=== PATIENT | female | born 1980 | race Hispanic/Latino ===

== ENCOUNTER 2016-06-11 21:48 | Emergency (ER) | payer OTHER ==
[~2016-06-11] VITALS: Ht 149.9 cm; Wt 80.7 kg
[~2016-06-11 21:48] MED LIST: DOCUSATE SODIU100 MG PO; IBUPROFEN800 MG PO; PERCOCET 325 MG1 TA2 PO; PERCOCET 5-3251 EACH PO; TYLENOL EXTRA500 M2 PO
--- NOTE | 2016-06-11 22:13 | ED SKIN/ALLERGY COMPLAINT ---
History of Present Illness General Chief Complaint: General Adult Stated Complaint: PT THINKS SHE IS HAVING A REACTION Source: patient Exam Limitations: no limitations Vital Signs & Intake/Output Vital Signs & Intake/Output Vital Signs Date Time Temp Pulse Resp B/P Pulse O2 O2 Flow FiO2 Ox Delivery Rate 06/12 0013 98.0 94 18 121/80 100 Room Air 06/11 2244 100 Room Air 06/11 2154 98.2 105 20 125/81 100 Room Air ED Intake and Output 06/12 0000 06/11 1200 Intake Total Output Total Balance Patient 178 lb Weight Allergies Coded Allergies: NSAIDS (Non-Steroidal Anti-Inflamma (ANAPHYLAXIS 12/18/15) aspirin (ANAPHYLAXIS 12/18/15) ibuprofen (ANAPHYLAXIS 12/18/15) Triage Note: RECEIVED 36 YO FEMALE C/O SHE JUST GOT HOME AND SHE FEELS LIKE SHE IS HAVING A REACTION TO SOMETHING. PT C/O FEELING ITCHY ALL OVER, SCRATCHY THROAT, FEELS VERY CONGESTED WITH DIFFICULTY SWALLOWING Triage Nurses Notes Reviewed? yes Onset: Abrupt Duration: constant Timing: single episode today Severity: moderate Severity Numbers: 5 Location: generalized Possible Factors: foods No Modifying Factors: none : No Patient currently breastfeeds: No HPI: Patient is a 36-year-old female with a past medical history of asthma who presents to emergency room stating that this evening 50 minutes prior to arrival she ate her dinner which encompassed rice beans and pork chop and which approximate 20 minutes immediately after she started to complain of generalized body itching itchy scratchy throat eyelid swelling and mild shortness of breath. Patient took her inhaler with no relief of symptoms and took an unknown allergy medication. Patient denies any tongue swelling or lip swelling or difficulty swallowing. (ANIYAH MOSELEY) Reconcile Medications Diphenhydramine HCl (Benadryl) 25 MG CAPSULE 1 CAP PO TID ALLERGIC REACTION Famotidine (Pepcid) 20 MG TABLET 1 TAB PO DAILY ALLERGIC REACTION Methylprednisolone. (Medrol) 4 MG TAB.DS.PK 1 DP PO AD INFLAMMATION 6 on day 1 then reduce by one tablet daily until gone (MARILIA BALDERAS,JENNY) Past History Travel History Traveled to [place] past 21 day No Medical History Any Pertinent Medical History? see below for history Neurological: NONE EENT: NONE Cardiovascular: NONE Respiratory: asthma Gastrointestinal: NONE Hepatic: NONE Renal: NONE Musculoskeletal: CARPAL TUNNEL Psychiatric: NONE Endocrine: NONE Blood Disorders: NONE Cancer(s): NONE MANAGER LEASING/Reproductive: ectopic Surgical History Surgical History: tubal ligation Psychosocial History Who do you live with Patient/Self What is your primary language [place] Citizen Tobacco Use: Never used Family History Hx Contributory? No (ANIYAH MOSELEY) Review of Systems Review of Systems Constitutional: Reports: no symptoms. EENTM: Reports: see HPI. Respiratory: Reports: see HPI. Cardiovascular: Reports: no symptoms. GI: Reports: no symptoms. Genitourinary: Reports: no symptoms. Musculoskeletal: Reports: no symptoms. Skin: Reports: see HPI, rash. Neurological/Psychological: Reports: no symptoms. Hematologic/Endocrine: Reports: no symptoms. Immunologic/Allergic: Reports: no symptoms. All Other Systems: Reviewed and Negative (ANIYAH MOSELEY) Physical Exam Physical Exam General Appearance: no apparent distress, alert Comments: Well-developed well-nourished person in no acute distress HEENT: Normal EENT exam, extraocular motion intact, no nystagmus. Pupils equally round and reactive to light and accommodation. Nose is atraumatic. External auditory canal and Tympanic membranes clear. Pharynx normal. No swelling or edema. No tongue swelling no lip swelling No pharyngeal swelling Neck: Supple, no lymphadenopathy, normal range of motion without pain or tenderness No stridor Back: Nontender, no CVA tenderness. Cardiovascular: Regular rate and rhythms no murmurs rubs or gallops, normal JVP Respiratory: Chest nontender. No respiratory distress.breath sounds clear to auscultation bilaterally Abdomen: Soft, nontender nondistended, no appreciable organomegaly. Normal bowel sounds. No ascites Extremity: No edema, no calf tenderness to palpation, normal and equal pulses. Neuro: Alert oriented x3, motor sensory normal, Skin: scattered 1 cm erythema and raised urticaria noted on extremities and torso Psych: Mood and affect is normal, memory and judgment is normal. (ANIYAH MOSELEY) Progress Differential Diagnosis: abscess/cellulitis, allergic reaction, anaphylaxis, angioedema, asthma, contact dermatitis, drug reaction, erythema multiforme, lyme disease, meningitis/sepsis, piyriasis rosea, RMSF, scarlet fever, shingles, urticaria Plan of Care: Current Medications Sig/Racheal Start time Last Medication Dose Stop Time Status Admin Diphenhydramine HCl 50 MG ONCE ONE 06/11 2230 AC (Benadryl) 06/11 2230 Famotidine 20 MG ONCE ONE 06/11 2229 AC (Pepcid) 06/11 2230 Methylprednisolone 125 MG ONCE ONE 06/11 2229 AC (Solu Medrol) 06/11 2230 Patient currently shows no signs of anaphylaxis or angioedema oxygen saturation was 99% no stridor noted no respiratory distress. 06/11/2016 11:18:44 PM-reevaluation the patient she states that she feels significantly improved and there are no signs of urticaria no signs of stridor no signs of pharyngeal swelling no signs of anaphylaxis or urticaria or angioedema. On discharge patient had 99% oxygen saturation I strongly advised patient to avoid the food which most likely cause her symptoms and she will comply. (ANIYAH MOSELEY) Departure Departure Disposition: HOME OR SELF CARE Condition: Stable Clinical Impression Primary Impression: Allergic reaction to food Secondary Impressions: Hives Referrals: PATIENT HAS NO PRIMARY CARE DR (PCP/Family) Additional Instructions: As discussed begin the Medrol dosepak prescription tomorrow YOU HAVE received prednisone in the emergency room, begin the prescription of Pepcid and Benadryl as directed for your symptoms. Please avoid the food THAT most likely cause your symptoms. If symptoms worsen or if he develop any new concerning symptom return to emergency room immediately. Follow-up with primary care doctor tomorrow if no better Prescription is waiting at [facility] pharmacy Departure Forms: Customer Survey General Discharge Information Prescriptions: Current Visit Scripts Methylprednisolone. (Medrol) 1 DP PO AD #1 DP 6 on day 1 then reduce by one tablet daily until gone Famotidine (Pepcid) 1 TAB PO DAILY #8 TAB Diphenhydramine HCl (Benadryl) 1 CAP PO TID #9 CAP (ANIYAH MOSELEY) PA/FINISHED GOODS INSPECTOR Co-Sign Statement Statement: ED Attending supervision documentation- [] I saw and evaluated the patient. I have also reviewed all the pertinent lab results and diagnostic results. I agree with the findings and the plan of care as documented in the PA's/FINISHED GOODS INSPECTOR's documentation. [X] I have reviewed the ED Record and agree with the PA's/FINISHED GOODS INSPECTOR's documentation. [] Additions or exceptions (if any) to the PAs/FINISHED GOODS INSPECTOR's note and plan are summarized below: [] (MARILIA BALDERAS,JENNY)
[2016-06-11] MEDS ORDERED: MEDROL4 M2 PO (22:31)
[2016-06-11] MEDS ORDERED: BENADRYL25 MG PO (22:31)
[2016-06-11] MEDS ORDERED: PEPCID20 M1 PO (22:31)
[2016-06-12 00:13] VITALS: BP 121/80
== END 2016-06-12 00:15 ==
LOC: ERH 21:48 → CANBEDREQ 22:42 → ERH 06-12 00:15
DX: T78.1XXA Other adverse food reactions, not elsewhere classified, initial encounter (principal); L50.9 Urticaria, unspecified
CPT/HCPCS: 96374; 96375; J1200; J2930

== ENCOUNTER → 2017-11-19 | Day surgery (SDC) | payer OTHER ==
[~2017-11-19] VITALS: Ht 149.9 cm; Wt 81.6 kg
[~2017-11-19] MED LIST changes: +BENADRYL25 MG PO; +MEDROL4 M2 PO; +PEPCID20 M1 PO
[2017-11-19 10:15] LABS: ABSOLUTE BASOPHIL COUNT 0.1 /CUMM (0.0-0.2); ABSOLUTE EOSINOPHIL COUNT 0.2 /CUMM (0.0-0.7); ABSOLUTE GRANULOCYTE CT 4.8 /CUMM (1.4-6.5); ABSOLUTE LYMPH COUNT 2.2 /CUMM (1.2-3.4); ABSOLUTE MONOCYTE COUNT 0.4 /CUMM (0.10-0.60); BASOPHIL % 0.8 % (0.0-2.0); EOSINOPHIL % 2.8 % (0-5); GRANULOCYTE % 62.1 % (42.2-75.2); HEMATOCRIT 41.6 % (37-47); MEAN CORPUSCULAR HGB 26.5 PG (27.0-31.0); MEAN CORPUSCULAR HGB CONC 32.5 G/DL (33.0-37.0); MEAN CORPUSCULAR VOLUME 81.6 FL (81.0-99.0); PLATELET COUNT 398 /CUMM (130-400); RBC DISTRIBUTION WIDTH 15.2 % (11.5-14.5); WHITE BLOOD CELL COUNT 7.8 /CUMM (4.8-10.8)
[2017-11-19 10:25] LABS: PT 12.4 SEC (9.4-12.5); PTT 29 SEC (25-37)
--- NOTE | 2017-11-19 13:12 | Operative Report ---
Operative/Inv Procedure Report Surgery Date: 11/19/17 Name of Procedure: D&C cryoablation of the uterus under ultrasound guidance Pre-Operative Diagnosis: Menorrhagia Post-Operative Diagnosis: Same Estimated Blood Loss: 50ml to 100ml Surgeon/Barge Master: Jovany BALDERAS,Lisset Sellers Anesthesia: moderate sedation Operative/Procedure Note Note: She was taken the operating room placed supine position after adequate anesthesia patient placed in dorsolithotomy position the vagina from dorsal fashion bladder was catheterized a's ramirez speculum was placed into the vagina CO2 tenaculum was placed on the Intralipid cervix cervix twilight dilated 29 Hegar to allow for the insertion of the sharp curet sharp curettage and cervical lining performed sharp curettage of the endometrial lining performed 2 specimens were sent to pathology this point the bladder was filled approximately 250 mL of normal saline patient tolerated that well under ultrasound guidance the probe was inserted the uterus approximately 8 minutes on a well-developed probe was heated and removed on since removed from the vagina patient was returned spine position awakened from anesthesia and transferred recovery room awake alert counts correct
--- NOTE | 2017-11-20 07:52 | ULTRASOUND REPORT ---
EXAMINATION: Intraoperative ultrasound CLINICAL INFORMATION: 37-year-old female with metromenorrhagia. COMPARISON: None. TECHNIQUE: Ultrasound required for intraoperative use by Dr. Manzo for dilatation and curettage and cryoablation. A total of 9 images were saved to PACS. A radiologist was not present during today's procedure. FINDINGS\E\IMPRESSION: Intraoperative ultrasound provided for use by Dr. Manzo. Please see operative note for detailed findings.
== END ==
LOC: STS 02:09 → XRY 11:30
PROVIDERS: Specialist
DX: N92.0 Excessive and frequent menstruation with regular cycle (principal)
CPT/HCPCS: 36415; 76998; 81001; 81025; 82670; J0131; J2250

== ENCOUNTER → 2018-01-11 | Day surgery (SDC) | payer OTHER ==
[~2018-01-11] VITALS: Ht 149.9 cm; Wt 79.4 kg
--- NOTE | 2018-01-11 10:57 | Operative Report ---
Operative/Inv Procedure Report Surgery Date: 01/11/18 Name of Procedure: Right breast biopsy with wire localization Pre-Operative Diagnosis: Right breast mass, complex sclerosing lesion Post-Operative Diagnosis: Same Estimated Blood Loss: scant Surgeon/Product Control And Logistics Analyst: Beth Frank MD Anesthesia: local monitored anesthesi Specimens: Right breast biopsy Operative/Procedure Note Note: Patient has an abnormal mammogram and needle biopsy was performed. Complex sclerosing lesion was identified on pathology, and mammography appearance remains suspicious with a wide area of architectural distortion. Excisional biopsy is recommended. This is brought to the operating room and given and anesthesia. 2 g of Ancef was given and the right breast was prepped and draped in a sterile fashion using ChloraPrep. Preoperative wire localization was performed and those films were reviewed. Local anesthesia of lidocaine and Marcaine mix was given and a periareolar incision was made. The wire was brought into the incision and a firm area surrounding the wire localization site was dissected from surrounding tissue using sharp dissection. Hemostasis is achieved using electrocautery. Specimen was removed and marked for orientation and margin map. Intraoperative x-ray confirmed the presence of the clip in the specimen. Hemostasis was adequate and deep tissue was approximated using interrupted Vicryl sutures. Skin was closed using a running Biosyn subcutaneous/stitch. Insertion of central dressings were applied and patient was transferred to the recovery room in satisfactory condition having tolerated the procedure well.
--- NOTE | 2018-01-12 08:43 | MAMMOGRAPHY REPORT ---
PROCEDURE: US GUIDANCE FOR BREAST PREOPERATIVE NEEDLE LOCALIZATION, RIGHT MM POST NEEDLE LOCALIZATION SINGLE CC VIEW, RIGHT BREAST AND SPECIMEN RADIOGRAPHY CLINICAL INFORMATION: 37-year-old female with family history of breast cancer (maternal great aunt, and maternal great grandmother) and personal history of left-sided benign excisional biopsy at age 21, found to have architectural distortion within the right breast at 11-12 o'clock, 3 to 4 cm from the nipple on screening mammogram done in 2018. Subsequent ultrasound-guided biopsy showed fragments of sclerosing lesion with ductal hyperplasia and flat epithelial atypia and fibrocystic changes. Preoperative needle localization for surgical excision is requested. COMPARISON: Prior studies done on 11/18/2017 and 11/24/2017. TECHNIQUE AND FINDINGS: The details of the procedure, as well as the risks, benefits, and alternatives to the procedure were explained to the patient in detail and all of her questions were answered, after which, written informed consent was obtained. Prior to the procedure, sonography revealed heterogeneous irregular mass at 11-12 o'clock, 3 cm from the nipple containing a tissue marker from prior biopsy done on 11/24/2017. A time-out was performed, the lesion intended for needle localization was targeted and the skin of the right breast was then prepped and draped in the usual sterile fashion. Using sonographic guidance, sterile technique and buffered 2% lidocaine without epinephrine for local anesthesia, a 5 cm Kopans needle was placed within the target at 11-12 o'clock, 3 cm from the nipple. The patient tolerated the procedure well.. The single view mammogram further confirmed accurate placement of the wire within the intended mass. No adjustment was considered necessary. Previously placed tissue marker was also identified adjacent to the wire. The worksheet was appropriately labeled and was sent to the OR with the patient. Subsequently, following excision of the mass, the specimen radiography was performed which revealed target within the specimen with intact wire and the previously placed tissue marker within the mass. IMPRESSION: 1. Successful sonographic guided wire localization of the right breast biopsy proved sclerosing lesion at 11-12 o'clock, 3 cm from the nipple. 2. Mammographic confirmation of accurate needle localization along with appropriate marking for presurgical roadmap with worksheet. 3. Final specimen radiograph confirming complete, adequate excision of the mass and removal of the previously placed tissue marker and intact wire. Results were called to Dr. Frank in the operating room at the time of imaging. The histology report is pending.
== END ==
LOC: STS 04:41
DX: N60.21 Fibroadenosis of right breast (principal); I10 Essential (primary) hypertension
CPT/HCPCS: 76942; 77065-RT; 81025; J0131; J0690; J2001; J2250